=== PATIENT | female | born 1945 | race Caucasian/White ===

== ENCOUNTER 2020-06-10 15:30 | Inpatient (IN) | payer MEDICARE, OTHER ==
[~2020-06-10] VITALS: Ht 162.6 cm; Wt 6.3 kg
--- NOTE | 2020-06-10 15:50 | NUR ---
OXYGEN PLACED AT 5L VIA NC FOR PULSE OX OF 77% ROOM AIR.
--- NOTE | 2020-06-10 15:55 | NUR ---
NC CHANGED TO OXYMASK BY DR JONES. PULSE OX ON NC 94%.
[2020-06-10] MEDS ORDERED: LACTATED RINGERS 1,000 ML IV ONE ×3 (16:08→19:56)
[2020-06-10] MEDS ORDERED: ENOXAPARIN 40 MG/0.4 ML (LOVENOX) SYR ONE (16:08)
--- NOTE | 2020-06-10 16:11 | NUR ---
BOTH DR JONES AND I TRIED FOR A ABG ET WAS UNSUCCESSFUL.
--- NOTE | 2020-06-10 16:20 | NUR ---
JUICE GIVEN TO THE PT.
[2020-06-10 16:25] LABS: BASOPHILS % (AUTO) 0 % (0-10); EOSINOPHILS % (AUTO) 0 % (0-10); HEMATOCRIT 40 % (35-52); HEMOGLOBIN 13.6 g/dL (11.5-16.0); LYMPHOCYTES # (AUTO) 1.4 10^3/uL (1.0-4.0); LYMPHOCYTES % (AUTO) 16 % (12-44); MEAN CORPUSCULAR HEMOGLOBIN 31 pg (25-34); MEAN CORPUSCULAR HGB CONC 34 g/dL (32-36); MEAN CORPUSCULAR VOLUME 91 fL (80-99); MEAN PLATELET VOLUME 8.9 fL (9.0-12.2); MONOCYTES # (AUTO) 0.7 10^3/uL (0.0-1.0); MONOCYTES % (AUTO) 8 % (0-12); NEUTROPHILS # (AUTO) 6.6 10^3/uL (1.8-7.8); NEUTROPHILS % (AUTO) 75 % (42-75); PLATELET COUNT 431 10^3/uL (130-400); WHITE BLOOD COUNT 8.8 10^3/uL (4.3-11.0)
--- NOTE | 2020-06-10 16:26 | ED Respiratory ---
General Chief Complaint: Respiratory Problems Stated Complaint: COVID POSITIVE - SOA Nursing Triage Note: ARRIVED VIA AMB IN [facility]UTIONS TO ROOM 10. DX WITH COVID YESTERDAY AND WAS TOLD TO GO BACK TO [facility] FOR PULSE OX CHECK. PULSE OX THERE WAS 88%RA AND WAS SENT HERE. Source: patient Exam Limitations: no limitations History of Present Illness Date Seen by Provider: Jun 10, 2020 Time Seen by Provider: 15:57 Initial Comments Patient presents ER by private conveyance from [facility] with chief complaint she was diagnosed 2 days ago with COVID-19 at [facility] and to follow up today for oxygen sat rechecked. Her sats were 86% per nursing staff on room air so they sent her straight to the ER. The patient does not have any lung issues or vertical history. She does not follow with a doctor routinely. She does not require oxygen at baseline. She is not having a productive cough but she is having nausea and vomiting and took a tablet of ondansetron just before coming out and her nausea is gone. She says she's had very little to eat or drink in the last couple days. She has body aches and chills but no fever recently. Her symptoms started approximate 7 days ago on Friday. Allergies and Home Medications Allergies Coded Allergies: No Known Drug Allergies (Unverified , 06/10/20) Patient Home Medication List Home Medication List Reviewed: Yes Review of Systems Review of Systems Constitutional: No chills, No diaphoresis EENTM: No ear discharge, No hearing loss, No blurred vision Respiratory: No cough; short of breath; No wheezing Cardiovascular: No chest pain, No Hx of Intervention, No palpitations Gastrointestinal: No abdominal pain; nausea, vomiting Genitourinary: No discharge, No dysuria Musculoskeletal: No back pain, No joint pain Skin: No pruritus, No rash Psychiatric/Neurological: Denies Anxiety, Denies Depressed Immunological/Allergic: grass allergy All Other Systems Reviewed Negative Unless Noted: Yes Past Bdodvzs-Tmgcmm-Gconfe Hx Patient Social History Alcohol Use: Denies Use Recreational Drug Use: No Smoking Status: Former Smoker Recent Foreign Travel: No Contact w/Someone Who Travel: No Recent Infectious Disease Expo: No Recent Hopitalizations: No Past Medical History Surgeries: No Respiratory: No Cardiac: No Neurological: No Genitourinary: No Gastrointestinal: No Musculoskeletal: No Endocrine: No HEENT: No Cancer: No Psychosocial: No Integumentary: No Physical Exam Vital Signs - First Documented 06/10/20 06/10/20 15:50 15:55 Temp 35.4 Pulse 80 Resp 24 B/P (MAP) 124/71 (88) Pulse Ox 77 O2 Delivery Room Air O2 Flow Rate 8.00 Capillary Refill : Less Than 3 Seconds Height: '" Weight: lbs. oz. kg; 22.00 BMI Method: General Appearance: WD/WN, moderate distress Eyes: Bilateral Eye Normal Inspection, Bilateral Eye PERRL, Bilateral Eye EOMI HEENT: PERRL/EOMI, TMs normal; No pharynx normal (oropharynx is dry) Neck: non-tender, full range of motion, supple, normal inspection Respiratory: lungs clear, normal breath sounds, respiratory distress (oxygen saturation 78% on room air.) Cardiovascular: normal peripheral pulses, regular rate, rhythm Gastrointestinal: normal bowel sounds, non tender, soft Extremities: normal inspection, normal capillary refill Neurologic/Psychiatric: alert, normal mood/affect, oriented x 3 Skin: cool, mottled Focused Exam Lactate Level 06/10/20 16:00: Lactic Acid Level 1.68 Lactic Acid Level Laboratory Tests Test 06/10/20 16:00 Lactic Acid Level 1.68 MMOL/L (0.50-2.00) Progress/Results/Core Measures Suspected Sepsis Recent Fever Within 48 Hours: Yes Infection Criteria Present: Documented Infection New/Unexplained Altered Menta: No Sepsis Screen: Possible Severe Sepsis Risk SIRS Temperature: Pulse: 80 Respiratory Rate: 24 Laboratory Tests 06/10/20 16:00: White Blood Count 8.8 Blood Pressure 124 /71 Mean: 88 06/10/20 16:00: Lactic Acid Level 1.68 Laboratory Tests 06/10/20 16:00: Creatinine 0.90, Platelet Count 431H, Total Bilirubin 0.5 Results/Orders Lab Results Laboratory Tests Test 06/10/20 16:00 06/10/20 16:32 Range/Units White Blood Count 8.8 4.3-11.0 10^3/uL Red Blood Count 4.38 3.80-5.11 10^6/uL Hemoglobin 13.6 11.5-16.0 g/dL Hematocrit 40 35-52 % Mean Corpuscular Volume 91 80-99 fL Mean Corpuscular Hemoglobin 31 25-34 pg Mean Corpuscular Hemoglobin Concent 34 32-36 g/dL Red Cell Distribution Width 12.3 10.0-14.5 % Platelet Count 431 H 130-400 10^3/uL Mean Platelet Volume 8.9 L 9.0-12.2 fL Immature Granulocyte % (Auto) 0 % Neutrophils (%) (Auto) 75 42-75 % Lymphocytes (%) (Auto) 16 12-44 % Monocytes (%) (Auto) 8 0-12 % Eosinophils (%) (Auto) 0 0-10 % Basophils (%) (Auto) 0 0-10 % Neutrophils # (Auto) 6.6 1.8-7.8 10^3/uL Lymphocytes # (Auto) 1.4 1.0-4.0 10^3/uL Monocytes # (Auto) 0.7 0.0-1.0 10^3/uL Eosinophils # (Auto) 0.0 0.0-0.3 10^3/uL Basophils # (Auto) 0.0 0.0-0.1 10^3/uL Immature Granulocyte # (Auto) 0.0 0.0-0.1 10^3/uL Sodium Level 133 L 135-145 MMOL/L Potassium Level 3.7 3.6-5.0 MMOL/L Chloride Level 96 L 98-107 MMOL/L Carbon Dioxide Level 24 21-32 MMOL/L Anion Gap 13 5-14 MMOL/L Blood Urea Nitrogen 21 H 7-18 MG/DL Creatinine 0.90 0.60-1.30 MG/DL Estimat Glomerular Filtration Rate > 60 BUN/Creatinine Ratio 23 Glucose Level 114 H 70-105 MG/DL Lactic Acid Level 1.68 0.50-2.00 MMOL/L Calcium Level 8.8 8.5-10.1 MG/DL Corrected Calcium 9.0 8.5-10.1 MG/DL Total Bilirubin 0.5 0.1-1.0 MG/DL Aspartate Amino Transf (AST/SGOT) 35 H 5-34 U/L Alanine Aminotransferase (ALT/SGPT) 20 0-55 U/L Alkaline Phosphatase 100 40-136 U/L C-Reactive Protein High Sensitivity 5.69 H 0.00-0.50 MG/DL Total Protein 7.2 6.4-8.2 GM/DL Albumin 3.7 3.2-4.5 GM/DL Blood Gas Puncture Site L RAD Blood Gas Patient Temperature 35.4 Arterial Blood pH 7.45 H 7.37-7.43 Arterial Blood Partial Pressure CO2 36 35-45 MMHG Arterial Blood Partial Pressure O2 131 H 79-93 MMHG Arterial Blood HCO3 25 23-27 MMOL/L Arterial Blood Total CO2 25.9 21.0-31.0 MMOL/L Arterial Blood Oxygen Saturation 99 94-100 % Arterial Blood Base Excess 0.9 -2.5-2.5 MMOL/L Dinh Test YES-POS Blood Gas Ventilator Setting NO Blood Gas Inspired Oxygen 8L My Orders Orders - ALMA JONES Lactated Ringers (Lr 1000 Ml Iv Solution (06/10/20 16:08) Enoxaparin Injection (Lovenox Injection) (06/10/20 16:08) Dexamethasone Injection (Decadron Inje (06/10/20 16:09) Cbc With Automated Diff (06/10/20 16:12) Comprehensive Metabolic Panel (06/10/20 16:12) Blood Culture (06/10/20 16:12) Sputum Culture (06/10/20 16:12) Urinalysis (06/10/20 16:12) Urine Culture (06/10/20 16:12) Protime With Inr (06/10/20 16:12) Partial Thromboplastin Time (06/10/20 16:12) Chest 1 View, Ap/Pa Only (06/10/20 16:12) Ed Iv/Invasive Line Start (06/10/20 16:12) Ed Iv/Invasive Line Start (06/10/20 16:12) Vital Signs Adult Sepsis Patie Q15M (06/10/20 16:12) O2 (06/10/20 16:12) Remove Rings In Anticipation O (06/10/20 16:12) Lactic Acid Analyzer (06/10/20 16:12) Lactated Ringers (Lr 1000 Ml Iv Solution (06/10/20 16:12) Monitor-Rhythm Ecg Trace Only (06/10/20 16:12) Hs C Reactive Protein (06/10/20 16:12) Fibrin Degradation Products (06/10/20 16:12) Covid-19 External Lab Results (06/10/20 16:12) Procalcitonin (Pct) (06/10/20 16:12) Enoxaparin Injection (Lovenox Injection) (06/10/20 16:30) Dexamethasone Injection (Decadron Injec (06/10/20 16:30) Dexamethasone Injection (Decadron Inje (06/10/20 16:30) Arterial Blood Gas (06/10/20 16:32) Medications Given in ED Current Medications Medications Dose Ordered Sig/Carmita Route Start Time Stop Time Status Last Admin Dose Admin Dexamethasone Sodium Phosphate 6 mg ONCE ONCE IV 06/10/20 16:30 06/10/20 16:31 DC 06/10/20 16:23 6 MG Enoxaparin Sodium 40 mg ONCE ONCE SC 06/10/20 16:30 06/10/20 16:31 DC 06/10/20 16:22 40 MG Lactated Ringer's 1,000 ml @ 0 mls/hr Q0M ONCE IV 06/10/20 16:12 06/10/20 16:19 DC 06/10/20 16:20 1,000 MLS/HR Vital Signs/I&O 06/10/20 06/10/20 15:50 15:55 Temp 35.4 Pulse 80 Resp 24 B/P (MAP) 124/71 (88) Pulse Ox 77 O2 Delivery Room Air OxyMask O2 Flow Rate 8.00 Capillary Refill : Less Than 3 Seconds Blood Pressure Mean: 88 Progress Note : Time: 16:24 Progress Note Patient presents mottled, cyanotic, cool with oxygen sats in the upper 70s on room air. Nasal cannula 6 L/m only brought her up to about 89%. We put her on oxygen mask at 8 L/m and this brought her up to 94-97%. She is not tachycardic or febrile but she is cool with a temperature of 95. Plan to warm her up in her some IV fluids at the Limited rate 1 L and look for secondary opportunistic bacterial infection. If we cannot discover this and will not start antibiotics. However we'll give her Decadron and 40 mg Lovenox subcutaneous. Diagnostic Imaging Diagonstic Imaging: Xray Plain Films/CT/US/NM/MRI: chest Comments Bilateral patchy parenchymal opacities consistent with viral pneumonia. Reviewed: Reviewed by Me Departure Communication (Admissions) Time/Spoke to Admitting Phy: 16:25 Discussed the case with Dr. Ordaz and he feels she will be fine on the floor with 8 L oxygen, steroids and Lovenox. Impression Primary Impression: COVID-19 Additional Impression: Acute respiratory failure with hypoxemia Disposition: ADMITTED INPATIENT Condition: Stable Admissions Decision to Admit Reason: Admit from ER (General) Decision to Admit/Date: Jun 10, 2020 Time/Decision to Admit Time: 16:07 ALMA JONES Jun 10, 2020 16:26
[2020-06-10] MEDS ORDERED: ENOXAPARIN 40 MG/0.4 ML (LOVENOX) SYR SC ONE (16:30)
[2020-06-10 16:35] LABS: ALBUMIN 3.7 GM/DL (3.2-4.5); CHLORIDE 96 MMOL/L (98-107); POTASSIUM 3.7 MMOL/L (3.6-5.0); SODIUM 133 MMOL/L (135-145)
[2020-06-10 16:36] LABS: CALCIUM 8.8 MG/DL (8.5-10.1)
[2020-06-10 16:37] LABS: GLUCOSE 114 MG/DL (70-105)
[2020-06-10 16:38] LABS: TOTAL PROTEIN 7.2 GM/DL (6.4-8.2)
[2020-06-10 16:39] LABS: BILIRUBIN,TOTAL 0.5 MG/DL (0.1-1.0); CARBON DIOXIDE 24 MMOL/L (21-32)
[2020-06-10 16:41] LABS: ALKALINE PHOSPHATASE 100 U/L (40-136); GFR ESTIMATED > 60
[2020-06-10 16:41] LABS: ABG BASE EXCESS 0.9 MMOL/L (-2.5-2.5); ABG OXYGEN SATURATION 99 % (94-100); ABG PCO2 36 MMHG (35-45); ABG PH 7.45 (7.37-7.43); ABG PO2 131 MMHG (79-93); ABG TCO2 25.9 MMOL/L (21.0-31.0)
[2020-06-10 16:42] LABS: BUN/CREATININE RATIO 23
[2020-06-10 16:42] LABS: ALLENS TEST YES-POS; INSPIRED O2 8L; PATIENT TEMP 35.4; VENTILATOR NO
[2020-06-10 16:44] LABS: ALANINE AMINOTRANSFERASE 20 U/L (0-55)
--- NOTE | 2020-06-10 17:05 | NUR ---
ATTEMPT TO CALL REPORT ET WENT STRAIT TO VOICE MAIL.
--- NOTE | 2020-06-10 17:10 | NUR ---
ATTEMPT TO CALL REPORT ET NURSE WILL CALL BACK.
--- NOTE | 2020-06-10 17:21 | Diagnostic Imaging Report ---
INDICATION: Sepsis. EXAMINATION: Portable chest at 4:51 p.m. FINDINGS: There is some peripheral infiltrates in the right mid and lower lung and left mid and lower lung. Heart size and pulmonary vascularity are normal. There is no effusion. IMPRESSION: Patchy infiltrates in both lungs consistent with pneumonia. Dictated by: Dictated on workstation # [id number]
[2020-06-10 17:43] VITALS: BP 117/75
[2020-06-10 19:15] LABS: FIBRIN DEGRADATION PRODUCTS 1.48 UG/ML (0.00-0.49); INR 0.9 (0.8-1.4); PROTHROMBIN TIME PATIENT 12.8 SEC (12.2-14.7)
[2020-06-10 20:15] VITALS: BP 108/63
[2020-06-10] MEDS: LACTATED RINGERS 1,000 ML IV SCH (20:43)
[2020-06-10] MEDS ORDERED: ACETAMINOPHEN 325 MG TABLET PO PRN (20:45)
[2020-06-10] MEDS ORDERED: ANTACID SUSP 30 ML UDC (MYLANTA) PO PRN (20:45)
[2020-06-10] MEDS ORDERED: ONDANSETRON 4 MG/2 ML (SDV) Z0FRAN IV PRN (20:45)
[2020-06-10] MEDS ORDERED: IBUPROFEN 800 MG (MOTRIN) TAB PO PRN (20:45)
[2020-06-11] VITALS (8 sets, daily range): BP systolic 101–130; BP diastolic 52–75
[2020-06-11] MEDS ORDERED: RT-ALBUTEROL INHALER HFA (VENTOLIN HFA) 18 GM IH PRN ×2 (04:00)
[2020-06-11] MEDS: RT-ALBUTEROL INHALER HFA (VENTOLIN HFA) 18 GM IH SCH ×6 (04:12→21:57)
[2020-06-11 05:44] LABS: BASOPHILS % (AUTO) 0 % (0-10); EOSINOPHILS % (AUTO) 0 % (0-10); HEMATOCRIT 37 % (35-52); HEMOGLOBIN 12.5 g/dL (11.5-16.0); LYMPHOCYTES # (AUTO) 0.8 10^3/uL (1.0-4.0); LYMPHOCYTES % (AUTO) 29 % (12-44); MEAN CORPUSCULAR HEMOGLOBIN 31 pg (25-34); MEAN CORPUSCULAR HGB CONC 34 g/dL (32-36); MEAN CORPUSCULAR VOLUME 92 fL (80-99); MEAN PLATELET VOLUME 8.7 fL (9.0-12.2); MONOCYTES # (AUTO) 0.3 10^3/uL (0.0-1.0); MONOCYTES % (AUTO) 9 % (0-12); NEUTROPHILS # (AUTO) 1.7 10^3/uL (1.8-7.8); NEUTROPHILS % (AUTO) 61 % (42-75); PLATELET COUNT 438 10^3/uL (130-400); WHITE BLOOD COUNT 2.7 10^3/uL (4.3-11.0)
[2020-06-11] MEDS ORDERED: ENOXAPARIN 40 MG/0.4 ML (LOVENOX) SYR SC SCH (06:00)
[2020-06-11 06:03] LABS: ALANINE AMINOTRANSFERASE 17 U/L (0-55); ALBUMIN 3.2 GM/DL (3.2-4.5); ALKALINE PHOSPHATASE 93 U/L (40-136); BILIRUBIN,TOTAL 0.4 MG/DL (0.1-1.0); BUN/CREATININE RATIO 22; CALCIUM 8.3 MG/DL (8.5-10.1); CARBON DIOXIDE 22 MMOL/L (21-32); CHLORIDE 102 MMOL/L (98-107); CREATININE SERUM 0.77 MG/DL (0.60-1.30); GFR ESTIMATED > 60; GLUCOSE 149 MG/DL (70-105); POTASSIUM 3.5 MMOL/L (3.6-5.0); SODIUM 139 MMOL/L (135-145); TOTAL PROTEIN 6.4 GM/DL (6.4-8.2)
[2020-06-11] MEDS: LACTATED RINGERS 1,000 ML IV SCH (08:19)
[2020-06-11] MEDS ORDERED: REMDESIVIR INJ 200 MG in NS (IVPB) 210 ML IV ONE (11:45)
--- NOTE | 2020-06-11 11:52 | History & Physical-Hospitalist ---
History of Present Illness HPI/Chief Complaint Reggie Olivas is a 74 year old female with no known past medical history who presented with shortness of breath. She reports no known fevers. She reports cough. She reports distortion of her taste and smell. She has not been eating very much. She reports muscle aches. She reports nausea. She reports diarrhea. She was a 1-2 pack per day smoker up until very recently. She has at least a 50+ pack year history. Source: patient Exam Limitations: no limitations Date Seen 06/11/20 Time Seen by a Provider: 11:15 Attending Physician Beth Bonilla MD PCP Referring Physician Date of Admission Jun 10, 2020 at 16:40 Home Medications & Allergies Home Medications Reviewed patient Home Medication Reconciliation performed by pharmacy medication reconciliations it telecom technician and/or nursing. Patients Allergies have been reviewed. Allergies Allergies Coded Allergies No Known Drug Allergies (Bbqvwefcsy44/17/20) Past Pefkpnu-Rndvct-Gxwcgj Hx Past Med/Social Hx: Reviewed Nursing Past Med/Soc Hx Patient Social History Alcohol Use: Denies Use Recreational Drug Use: No Smoking Status: Former Smoker Recent Foreign Travel: No Contact w/other who traveled: No Recent Hopitalizations: No Recent Infectious Disease Expo: No Review of Systems Constitutional: malaise EENTM: no symptoms reported Respiratory: cough, short of breath Cardiovascular: no symptoms reported Gastrointestinal: diarrhea, nausea Genitourinary: no symptoms reported Musculoskeletal: back pain Skin: no symptoms reported Psychiatric/Neurological: No Symptoms Reported Physical Exam Physical Exam Vital Signs Vital Signs - First Documented 06/10/20 06/10/20 06/11/20 15:50 15:55 01:44 Temp 35.4 Pulse 80 Resp 24 B/P (MAP) 124/71 (88) Pulse Ox 77 O2 Delivery Room Air O2 Flow Rate 8.00 FiO2 21 Capillary Refill : Less Than 3 Seconds Height, Weight, BMI Height: '" Weight: lbs. oz. kg; 23.82 BMI Method: General Appearance: No Apparent Distress, WD/WN HEENT: PERRL/EOMI, Pharynx Normal Neck: Normal Inspection, Supple Respiratory: Lungs Clear, Normal Breath Sounds, No Respiratory Distress Cardiovascular: Regular Rate, Rhythm, No Edema, No Murmur Gastrointestinal: Normal Bowel Sounds, Non Tender, Soft Extremity: Normal Inspection, Non Tender, No Pedal Edema Neurologic/Psychiatric: Alert, Oriented x3, No Motor/Sensory Deficits, Normal Mood/Affect Skin: Normal Color, Warm/Dry Results Results/Procedures Labs Laboratory Tests 06/10/20 16:00 06/11/20 05:15 Patient resulted labs reviewed. Imaging: Reviewed Imaging Report Assessment/Plan Admission Diagnosis Acute respiratory failure due to COVID-19 Admission Status: Inpatient Order (span 2 midnights) Reason for Inpatient Admission: COVID-19 requiring oxygen Assessment and Plan Acute respiratory failure due to COVID-19 Pneumonia due to COVID-19 Leukopenia Former smoker COVID positive Chest xray with bilateral infiltrates Procalcitonin negative Antibiotics not indicated Started on Decadron Begin Remdesivir, discussed risks/benefits/EUA use and patient agrees Convalescent plasma ordered, discussed risks/benefits/EUA use and patient agrees Nicotine gum as needed DVT/GI Prophylaxis: Lovenox/PPI Diagnosis/Problems Diagnosis/Problems (1) Acute respiratory failure due to COVID-19 Status: Acute (2) Pneumonia due to COVID-19 virus Status: Acute (3) Leukopenia Status: Acute (4) Former smoker Status: Chronic Clinical Quality Measures DVT/VTE Risk/Contraindication: Risk Factor Score Per Nursin RFS Level Per Nursing on Admit: 2=Moderate BETH BONILLA MD Jun 11, 2020 11:52
--- NOTE | 2020-06-11 12:38 | NUR ---
IVF STOPPED PER DR. BONILLA'S ORDERS
[2020-06-12] VITALS (11 sets, daily range): BP systolic 122–141; BP diastolic 54–70
[2020-06-12] MEDS: RT-ALBUTEROL INHALER HFA (VENTOLIN HFA) 18 GM IH SCH ×6 (02:05→21:41)
[2020-06-12] MEDS ORDERED: NS IV 500 ML 500 ML ONE (02:06)
[2020-06-12 04:39] LABS: ALBUMIN 3.3 GM/DL (3.2-4.5); CHLORIDE 104 MMOL/L (98-107); POTASSIUM 3.4 MMOL/L (3.6-5.0); SODIUM 139 MMOL/L (135-145)
[2020-06-12 04:40] LABS: CALCIUM 8.4 MG/DL (8.5-10.1)
[2020-06-12 04:41] LABS: GLUCOSE 124 MG/DL (70-105); TOTAL PROTEIN 6.1 GM/DL (6.4-8.2)
[2020-06-12 04:42] LABS: CARBON DIOXIDE 23 MMOL/L (21-32)
[2020-06-12 04:43] LABS: BILIRUBIN,TOTAL 0.4 MG/DL (0.1-1.0)
[2020-06-12 04:45] LABS: ALKALINE PHOSPHATASE 81 U/L (40-136); GFR ESTIMATED > 60
[2020-06-12 04:46] LABS: BUN/CREATININE RATIO 23
[2020-06-12 04:48] LABS: ALANINE AMINOTRANSFERASE 19 U/L (0-55)
[2020-06-12] MEDS: ENOXAPARIN 40 MG/0.4 ML (LOVENOX) SYR SC SCH (05:51)
[2020-06-12] MEDS: dexAMETHasone 6 MG TAB (DECADRON) PO SCH (05:51)
[2020-06-12] MEDS ORDERED: KCL 20 MEQ TAB (K-DUR) PO NR (08:00)
[2020-06-12] MEDS: PANTOPRAZOLE 40 MG (PROTONIX) TAB PO SCH (08:48)
--- NOTE | 2020-06-12 09:20 | Progress Note - Hospitalist ---
Subjective HPI/CC On Admission Date Seen by Provider: Jun 12, 2020 Time Seen by Provider: 09:19 Reggie Olivas is a 74 year old female with no known past medical history who presented with shortness of breath. She reports no known fevers. She reports cough. She reports distortion of her taste and smell. She has not been eating very much. She reports muscle aches. She reports nausea. She reports diarrhea. She was a 1-2 pack per day smoker up until very recently. She has at least a 50+ pack year history. Subjective/Events-last exam Pt reports feeling better and breathing easier. Still on 7lpm. Focused Exam Lactate Level 06/10/20 16:00: Lactic Acid Level 1.68 06/10/20 19:45: Lactic Acid Level 0.82 Objective Exam Vital Signs Vital Signs Date Time Temp Pulse Resp B/P (MAP) Pulse Ox O2 Delivery O2 Flow Rate FiO2 06/12/20 08:00 36.4 72 20 141/66 (91) 92 High Flow N/C 7.00 06/11/20 01:44 21 Capillary Refill : Less Than 3 Seconds General Appearance: No Apparent Distress, Chronically ill Respiratory: Lungs Clear, No Accessory Muscle Use, Other (on 7lpm HFNC) Cardiovascular: Regular Rate, Rhythm, No Murmur Gastrointestinal: Normal Bowel Sounds, Soft Neurologic/Psychiatric: Alert, Oriented x3 Results/Procedures Lab Laboratory Tests 06/12/20 04:06 Patient resulted labs reviewed. Imaging: Reviewed Imaging Report Assessment/Plan Assessment and Plan Assess & Plan/Chief Complaint Acute respiratory failure due to COVID-19 Pneumonia due to COVID-19 Leukopenia Former smoker Chest xray with bilateral infiltrates No abx as procal negative Continue Decadron Continue Remdesivir s/p Convalescent plasma Nicotine gum as needed DVt ppx: Lovenox Diagnosis/Problems Diagnosis/Problems (1) Acute respiratory failure with hypoxemia Status: Acute (2) COVID-19 Status: Acute (3) Leukopenia Status: Acute (4) Pneumonia due to COVID-19 virus Status: Acute (5) Acute respiratory failure due to COVID-19 Status: Acute Clinical Quality Measures DVT/VTE Risk/Contraindication: Risk Factor Score Per Nursin RFS Level Per Nursing on Admit: 2=Moderate ROBB MCKEON MD Jun 12, 2020 09:20
--- NOTE | 2020-06-12 10:51 | NUR ---
SPOKE WITH THE PT (I CALLED HER ROOM PHONE) TO COMPLETE THE MED REC PT DENIES TAKING ANY PRESCRIPTION OR OTC MEDICATION
[2020-06-12] MEDS: REMDESIVIR INJ 100 MG in NS (IVPB) 230 ML IV SCH (15:03)
--- NOTE | 2020-06-12 16:09 | NUR ---
1534: PATIENT CAMRON ROSE CALLED AT THIS TIME FOR UPDATES/QUESTIONS ON PATIENT STATUS. THIS RN BOWL ATTENDANT WAS CURRENTLY IN ANOTHER PATIENT ROOM AND UNABLE TO TALK. CAMRON INFORMED I WOULD CALL BACK WHEN I WAS FINISHED. 1609: ATTEMPTED TO CALL CAMRON ROSE AT THIS TIME WITH NO ANSWER. UNABLE TO LEAVE VOICEMAIL. 1613: CAMRON RETURNED CALL AT THIS TIME AND ALL QUESTIONS ANSWERED.
[2020-06-13] MEDS: RT-ALBUTEROL INHALER HFA (VENTOLIN HFA) 18 GM IH SCH ×6 (02:21→21:35)
[2020-06-13 03:13] VITALS: BP 130/79
[2020-06-13 05:20] LABS: HEMOGLOBIN 11.8 g/dL (11.5-16.0); MEAN PLATELET VOLUME 8.8 fL (9.0-12.2); WHITE BLOOD COUNT 8.1 10^3/uL (4.3-11.0)
[2020-06-13 05:34] LABS: ALBUMIN 3.4 GM/DL (3.2-4.5); CHLORIDE 103 MMOL/L (98-107); POTASSIUM 3.9 MMOL/L (3.6-5.0); SODIUM 138 MMOL/L (135-145)
[2020-06-13 05:35] LABS: CALCIUM 9.1 MG/DL (8.5-10.1)
[2020-06-13 05:36] LABS: GLUCOSE 117 MG/DL (70-105); TOTAL PROTEIN 6.3 GM/DL (6.4-8.2)
[2020-06-13 05:37] LABS: CARBON DIOXIDE 23 MMOL/L (21-32)
[2020-06-13 05:38] LABS: BILIRUBIN,TOTAL 0.5 MG/DL (0.1-1.0)
[2020-06-13 05:39] LABS: ALKALINE PHOSPHATASE 88 U/L (40-136)
[2020-06-13 05:40] LABS: CREATININE SERUM 0.71 MG/DL (0.60-1.30); GFR ESTIMATED > 60
[2020-06-13 05:41] LABS: BUN/CREATININE RATIO 24
[2020-06-13 05:43] LABS: ALANINE AMINOTRANSFERASE 23 U/L (0-55)
[2020-06-13] MEDS: ENOXAPARIN 40 MG/0.4 ML (LOVENOX) SYR SC SCH (05:44)
[2020-06-13] MEDS: dexAMETHasone 6 MG TAB (DECADRON) PO SCH (06:28)
[2020-06-13 08:21] VITALS: BP 129/69
[2020-06-13] MEDS: PANTOPRAZOLE 40 MG (PROTONIX) TAB PO SCH (08:30)
--- NOTE | 2020-06-13 09:13 | Progress Note - Hospitalist ---
Subjective HPI/CC On Admission Date Seen by Provider: Jun 13, 2020 Time Seen by Provider: 09:08 Reggie Olivas is a 74 year old female with no known past medical history who presented with shortness of breath. She reports no known fevers. She reports cough. She reports distortion of her taste and smell. She has not been eating very much. She reports muscle aches. She reports nausea. She reports diarrhea. She was a 1-2 pack per day smoker up until very recently. She has at least a 50+ pack year history. Subjective/Events-last exam Pt reports feeling much better today. Down to 4lpm. Has not been out of bed much because she's worried her oxygen saturation will drop. Compliant with IS every hour though. Focused Exam Lactate Level 06/10/20 16:00: Lactic Acid Level 1.68 06/10/20 19:45: Lactic Acid Level 0.82 Objective Exam Vital Signs Vital Signs Date Time Temp Pulse Resp B/P (MAP) Pulse Ox O2 Delivery O2 Flow Rate FiO2 06/13/20 08:21 36.6 72 18 129/69 (89) 91 High Flow N/C 4.00 06/11/20 01:44 21 Capillary Refill : Less Than 3 Seconds General Appearance: No Apparent Distress, WD/WN Respiratory: Lungs Clear, No Respiratory Distress Cardiovascular: Regular Rate, Rhythm, No Murmur Gastrointestinal: Normal Bowel Sounds, Non Tender, Soft Neurologic/Psychiatric: Alert, Oriented x3, Normal Mood/Affect Results/Procedures Lab Laboratory Tests 06/13/20 04:56 Patient resulted labs reviewed. Imaging: Reviewed Imaging Report Assessment/Plan Assessment and Plan Assess & Plan/Chief Complaint Acute respiratory failure due to COVID-19 Pneumonia due to COVID-19 Leukopenia Former smoker Chest xray with bilateral infiltrates No abx as procal negative Continue Decadron Continue Remdesivir s/p Convalescent plasma x1 Nicotine gum as needed Doing well, encouraged OOB activity and to use the bathroom and not BSC PT/OT DVt ppx: Lovenox Diagnosis/Problems Diagnosis/Problems (1) Acute respiratory failure with hypoxemia Status: Acute (2) COVID-19 Status: Acute (3) Leukopenia Status: Acute (4) Pneumonia due to COVID-19 virus Status: Acute (5) Acute respiratory failure due to COVID-19 Status: Acute Clinical Quality Measures DVT/VTE Risk/Contraindication: Risk Factor Score Per Nursin RFS Level Per Nursing on Admit: 2=Moderate ROBB MCKEON MD Jun 13, 2020 09:13
[2020-06-13 11:00] VITALS: BP 126/71
--- NOTE | 2020-06-13 11:27 | Physical Therapy Evaluation ---
PT Evaluation-General Medical Diagnosis Admission Date Jun 10, 2020 at 16:40 Medical Diagnosis: Covid (+)/acute respiratory failure Onset Date: Jun 10, 2020 Therapy Diagnosis Therapy Diagnosis: debility Precautions Precautions/Isolations: Contact Isolation, Droplet Isolation Referral Physician: Benjamin Reason for Referral: Evaluation/Treatment Medical History Pertinent Medical History: Smoking Additional Medical History does not follow a physician Current History ER secondary to decreased SAO2 on RA Reviewed History: Yes Social History Home: Single Level Prior Prior Level of Function SCALE: Activities may be completed with or without assistive devices. 0-Jumsfotfwr-yabndsf completes the activity by him/herself with no assistance from a helper. 5-Set-up or Clean-up Assistance-helper sets up or cleans up; patient completes activity. [place] assists only prior to or following the activity. 4-Supervision or Touching Assistance-helper provides verbal cues and/or touching/steadying and/or contact guard assistance as patient completes activity. Assistance may be provided throughout the activity or intermittently. 3-Partial/Moderate Assistance-helper does LESS THAN HALF the effort. [place] lifts, holds or supports trunk or limbs, but provides less than half the effort. 2-Substantial/Maximal Assistance-helper does MORE THAN HALF the effort. [place] lifts or holds trunk or limbs and provides more than half the effort. 7-Yoeazlpjt-umkzsr does ALL the effort. Patient does none of the effort to complete the activity. Or, the assistance of 2 or more helpers is required for the patient to complete the activity. If activity was not attempted, code reason: 7-Patient Refused. 9-Not Applicable-not attempted and the patient did not perform the activity before the current illness, exacerbation or injury. 10-Not Attempted due to Environmental Limitations-(lack of equipment, weather restraints, etc.). 88-Not Attempted due to Medical Conditions or Safety Concerns. Bed Mobility: 6 Transfers (B,C,W/C): 6 Gait: 6 Stairs: 6 Indoor Mobility (Ambulation): Independent Stairs: Independent Prior Devices Use: None PT Evaluation-Current Subjective Patient reports she is up independent in her room. Agrees to PT. Objective Patient Orientation: Normal For Age Attachments: Oxygen ROM/Strength ROM Lower Extremities bilateral LE WFL Strength Lower Extremities 4/5 grossly bilateral LE Integumentary/Posture Integumentary refer to nursing notes Bowel Incontinence: No Bladder Incontinence: No Posture WFL Neuromuscular (Tone, Coordination, Reflexes) grossly intact with all Sensory Vision: Functional Hearing: Functional Transfers Roll Left to Right (QC): 6 Sit to Lying (QC): 6 Lying to Sitting/Side of Bed(Q: 6 Sit to Stand (QC): 6 Chair/Ihz-yx-Nrvbs Xfer(QC): 6 Gait Does the Patient Walk?: Yes Mode of Locomotion: Walk Anticipated Mode of Locomotion: Walk Walk 10 feet (QC): 6 Walk 50 ft with 2 Turns(QC): 6 Walk 150 ft (QC): 6 Gait Assistive Device: None Comments/Gait Description in room due to precautions with patient negotiating O2 tubing independently Balance Sitting Static: Normal Sitting Dynamic: Normal Standing Static: Normal Standing Dynamic: Normal Assessment/Needs 74 y.o. female, is currently at [facility] with all gross motor skills and does not require skilled therapy intervention. Rehab Potential: Good PT Plan Treatment/Plan Treatment Plan: Discontinue PT, goals met Treatment Duration: Jun 13, 2020 Frequency: 1 time per week Estimated Hrs Per Day: .25 hour per day Patient and/or Family Agrees t: Yes Discharge Recommendations Therapy Discharge Recommendati: Home & Family Time/GCodes Time In: 950 Time Out: 1003 Total Billed Treatment Time: 13 Total Billed Treatment 1 visit EVLowC 13 min GISELLE ALEJANDRO PT Jun 13, 2020 11:27
[2020-06-13] MEDS: CARBAM PEROX/GLYC/PROP 15 ML DROPS (DEBROX) EACH EAR PRN (14:20)
[2020-06-13] MEDS: REMDESIVIR INJ 100 MG in NS (IVPB) 230 ML IV SCH (14:20)
[2020-06-13 16:19] VITALS: BP 130/65
[2020-06-13 20:14] VITALS: BP 139/76
[2020-06-13 23:50] VITALS: BP 134/62
[2020-06-14] MEDS: RT-ALBUTEROL INHALER HFA (VENTOLIN HFA) 18 GM IH SCH ×6 (02:24→20:45)
[2020-06-14 04:27] VITALS: BP 129/73
[2020-06-14 05:49] LABS: HEMOGLOBIN 12.1 g/dL (11.5-16.0); MEAN PLATELET VOLUME 8.9 fL (9.0-12.2); WHITE BLOOD COUNT 8.1 10^3/uL (4.3-11.0)
[2020-06-14 06:12] LABS: ALBUMIN 3.3 GM/DL (3.2-4.5)
[2020-06-14 06:13] LABS: CHLORIDE 103 MMOL/L (98-107); POTASSIUM 4.2 MMOL/L (3.6-5.0); SODIUM 137 MMOL/L (135-145)
[2020-06-14 06:14] LABS: CALCIUM 9.1 MG/DL (8.5-10.1)
[2020-06-14] MEDS: dexAMETHasone 6 MG TAB (DECADRON) PO SCH (06:14)
[2020-06-14] MEDS: ENOXAPARIN 40 MG/0.4 ML (LOVENOX) SYR SC SCH (06:14)
[2020-06-14 06:15] LABS: GLUCOSE 104 MG/DL (70-105); TOTAL PROTEIN 6.3 GM/DL (6.4-8.2)
[2020-06-14 06:16] LABS: CARBON DIOXIDE 23 MMOL/L (21-32)
[2020-06-14 06:17] LABS: BILIRUBIN,TOTAL 0.6 MG/DL (0.1-1.0)
[2020-06-14 06:18] LABS: ALKALINE PHOSPHATASE 94 U/L (40-136)
[2020-06-14 06:19] LABS: CREATININE SERUM 0.71 MG/DL (0.60-1.30); GFR ESTIMATED > 60
[2020-06-14 06:20] LABS: BUN/CREATININE RATIO 24
[2020-06-14 06:22] LABS: ALANINE AMINOTRANSFERASE 24 U/L (0-55)
[2020-06-14] MEDS: PANTOPRAZOLE 40 MG (PROTONIX) TAB PO SCH (08:11)
[2020-06-14 08:55] VITALS: BP 119/69
[2020-06-14 11:59] VITALS: BP 120/70
--- NOTE | 2020-06-14 12:46 | Progress Note - Hospitalist ---
Subjective HPI/CC On Admission Date Seen by Provider: Jun 14, 2020 Time Seen by Provider: 12:43 Reggie Olivas is a 74 year old female with no known past medical history who presented with shortness of breath. She reports no known fevers. She reports cough. She reports distortion of her taste and smell. She has not been eating very much. She reports muscle aches. She reports nausea. She reports diarrhea. She was a 1-2 pack per day smoker up until very recently. She has at least a 50+ pack year history. Subjective/Events-last exam Pt reports doing well today. Up in bed eating lunch. No complaints. Going to shower later today. Objective Exam Vital Signs Vital Signs Date Time Temp Pulse Resp B/P (MAP) Pulse Ox O2 Delivery O2 Flow Rate FiO2 06/14/20 11:59 61 22 120/70 (87) 90 High Flow N/C 5.00 06/14/20 08:55 36.4 06/11/20 01:44 21 Capillary Refill : Less Than 3 Seconds General Appearance: No Apparent Distress, WD/WN Respiratory: Lungs Clear, No Accessory Muscle Use, Other (on 6lpm) Cardiovascular: Regular Rate, Rhythm, No Murmur Gastrointestinal: Normal Bowel Sounds, Non Tender, Soft Neurologic/Psychiatric: Alert, Oriented x3 Results/Procedures Lab Laboratory Tests 06/14/20 05:14 Patient resulted labs reviewed. Imaging: Reviewed Imaging Report Assessment/Plan Assessment and Plan Assess & Plan/Chief Complaint Acute respiratory failure due to COVID-19 Pneumonia due to COVID-19 Leukopenia Former smoker Continue Decadron Continue Remdesivir s/p Convalescent plasma x1 Nicotine gum as needed Did well with PT yesterday DVt ppx: Lovenox Diagnosis/Problems Diagnosis/Problems (1) Acute respiratory failure with hypoxemia Status: Acute (2) COVID-19 Status: Acute (3) Leukopenia Status: Acute Qualifiers: Leukopenia type: other Qualified Codes: D72.818 - Other decreased white blood cell count (4) Pneumonia due to COVID-19 virus Status: Acute (5) Acute respiratory failure due to COVID-19 Status: Acute Clinical Quality Measures DVT/VTE Risk/Contraindication: Risk Factor Score Per Nursin RFS Level Per Nursing on Admit: 2=Moderate ROBB MCKEON MD Jun 14, 2020 12:46
[2020-06-14 16:19] VITALS: BP 123/60
[2020-06-14] MEDS: REMDESIVIR INJ 100 MG in NS (IVPB) 230 ML IV SCH (16:35)
[2020-06-14 19:36] VITALS: BP 132/63
[2020-06-15] VITALS (8 sets, daily range): BP systolic 98–129; BP diastolic 53–67
[2020-06-15] MEDS: RT-ALBUTEROL INHALER HFA (VENTOLIN HFA) 18 GM IH SCH ×6 (04:17→23:04)
[2020-06-15] MEDS: dexAMETHasone 6 MG TAB (DECADRON) PO SCH (05:41)
[2020-06-15] MEDS: ENOXAPARIN 40 MG/0.4 ML (LOVENOX) SYR SC SCH (05:42)
[2020-06-15 06:25] LABS: HEMOGLOBIN 11.7 g/dL (11.5-16.0); MEAN PLATELET VOLUME 8.8 fL (9.0-12.2); WHITE BLOOD COUNT 8.1 10^3/uL (4.3-11.0)
[2020-06-15 06:40] LABS: ALANINE AMINOTRANSFERASE 25 U/L (0-55); ALBUMIN 3.1 GM/DL (3.2-4.5); ALKALINE PHOSPHATASE 83 U/L (40-136); BILIRUBIN,TOTAL 0.5 MG/DL (0.1-1.0); BUN/CREATININE RATIO 24; CALCIUM 8.9 MG/DL (8.5-10.1); CARBON DIOXIDE 25 MMOL/L (21-32); CHLORIDE 102 MMOL/L (98-107); GFR ESTIMATED > 60; GLUCOSE 104 MG/DL (70-105); POTASSIUM 4.3 MMOL/L (3.6-5.0); SODIUM 137 MMOL/L (135-145); TOTAL PROTEIN 5.9 GM/DL (6.4-8.2)
[2020-06-15] MEDS: PANTOPRAZOLE 40 MG (PROTONIX) TAB PO SCH (08:25)
--- NOTE | 2020-06-15 12:26 | Progress Note - Hospitalist ---
Subjective HPI/CC On Admission Date Seen by Provider: Jun 15, 2020 Time Seen by Provider: 12:24 Reggie Olivas is a 74 year old female with no known past medical history who presented with shortness of breath. She reports no known fevers. She reports cough. She reports distortion of her taste and smell. She has not been eating very much. She reports muscle aches. She reports nausea. She reports diarrhea. She was a 1-2 pack per day smoker up until very recently. She has at least a 50+ pack year history. Subjective/Events-last exam Pt reports doing better today. No complaints. Oxygen requirement coming down. Objective Exam Vital Signs Vital Signs Date Time Temp Pulse Resp B/P (MAP) Pulse Ox O2 Delivery O2 Flow Rate FiO2 06/15/20 10:30 92 High Flow N/C 5.00 06/15/20 07:19 36.2 76 20 114/67 (83) 06/11/20 01:44 21 Capillary Refill : NONELess Than 3 Seconds General Appearance: No Apparent Distress, Chronically ill Respiratory: Lungs Clear, No Accessory Muscle Use, Other (on 5lpm) Cardiovascular: Regular Rate, Rhythm, No Murmur Neurologic/Psychiatric: Alert, Oriented x3 Results/Procedures Lab Laboratory Tests 06/15/20 05:50 Patient resulted labs reviewed. Imaging: Reviewed Imaging Report Assessment/Plan Assessment and Plan Assess & Plan/Chief Complaint Acute respiratory failure due to COVID-19 Pneumonia due to COVID-19 Leukopenia Former smoker Continue Decadron Continue Remdesivir- last dose today s/p Convalescent plasma x1 Continue to wean oxygen as able, will likely need home oxygen upon discharge but hopefully closer to 2-3 lpm on discharge DVt ppx: Lovenox Diagnosis/Problems Diagnosis/Problems (1) Acute respiratory failure with hypoxemia Status: Acute (2) COVID-19 Status: Acute (3) Leukopenia Status: Acute Qualifiers: Leukopenia type: other Qualified Codes: D72.818 - Other decreased white blood cell count (4) Pneumonia due to COVID-19 virus Status: Acute (5) Acute respiratory failure due to COVID-19 Status: Acute Clinical Quality Measures DVT/VTE Risk/Contraindication: Risk Factor Score Per Nursin RFS Level Per Nursing on Admit: 2=Moderate ROBB MCKEON MD Jun 15, 2020 12:26
[2020-06-15] MEDS: REMDESIVIR INJ 100 MG in NS (IVPB) 230 ML IV SCH (14:55)
[2020-06-16] VITALS (7 sets, daily range): BP systolic 100–117; BP diastolic 57–69
[2020-06-16] MEDS: RT-ALBUTEROL INHALER HFA (VENTOLIN HFA) 18 GM IH SCH ×5 (02:11→19:16)
[2020-06-16] MEDS: ENOXAPARIN 40 MG/0.4 ML (LOVENOX) SYR SC SCH (05:04)
[2020-06-16] MEDS: dexAMETHasone 6 MG TAB (DECADRON) PO SCH (05:04)
[2020-06-16 06:43] LABS: HEMOGLOBIN 11.2 g/dL (11.5-16.0); MEAN PLATELET VOLUME 8.8 fL (9.0-12.2); WHITE BLOOD COUNT 9.6 10^3/uL (4.3-11.0)
[2020-06-16 06:49] LABS: ALBUMIN 3.1 GM/DL (3.2-4.5)
[2020-06-16 06:51] LABS: CALCIUM 8.9 MG/DL (8.5-10.1)
[2020-06-16 06:52] LABS: GLUCOSE 110 MG/DL (70-105); TOTAL PROTEIN 5.8 GM/DL (6.4-8.2)
[2020-06-16 06:53] LABS: CARBON DIOXIDE 22 MMOL/L (21-32)
[2020-06-16 06:54] LABS: BILIRUBIN,TOTAL 0.4 MG/DL (0.1-1.0)
[2020-06-16 06:55] LABS: ALKALINE PHOSPHATASE 79 U/L (40-136)
[2020-06-16 06:56] LABS: GFR ESTIMATED > 60
[2020-06-16 06:57] LABS: BUN/CREATININE RATIO 33
[2020-06-16 06:58] LABS: ALANINE AMINOTRANSFERASE 21 U/L (0-55)
[2020-06-16 07:09] LABS: CHLORIDE 103 MMOL/L (98-107); POTASSIUM 4.3 MMOL/L (3.6-5.0); SODIUM 135 MMOL/L (135-145)
[2020-06-16] MEDS: PANTOPRAZOLE 40 MG (PROTONIX) TAB PO SCH (08:07)
--- NOTE | 2020-06-16 10:23 | Progress Note - Hospitalist ---
Subjective HPI/CC On Admission Date Seen by Provider: Jun 16, 2020 Time Seen by Provider: 10:20 Reggie Olivas is a 74 year old female with no known past medical history who presented with shortness of breath. She reports no known fevers. She reports cough. She reports distortion of her taste and smell. She has not been eating very much. She reports muscle aches. She reports nausea. She reports diarrhea. She was a 1-2 pack per day smoker up until very recently. She has at least a 50+ pack year history. Subjective/Events-last exam Pt reports feeling well. No complaints. Weaning down on oxygen. Down to 4lpm. Objective Exam Vital Signs Vital Signs Date Time Temp Pulse Resp B/P (MAP) Pulse Ox O2 Delivery O2 Flow Rate FiO2 06/16/20 10:08 91 Nasal Cannula 4.00 06/16/20 08:00 36.5 63 20 100/61 (74) 06/11/20 01:44 21 Capillary Refill : NONELess Than 3 Seconds General Appearance: No Apparent Distress, WD/WN Respiratory: No Accessory Muscle Use, Decreased Breath Sounds, Other (on 4lpm) Cardiovascular: Regular Rate, Rhythm, No Murmur Gastrointestinal: Normal Bowel Sounds, Non Tender, Soft Neurologic/Psychiatric: Alert, Oriented x3 Results/Procedures Lab Laboratory Tests 06/16/20 06:07 Patient resulted labs reviewed. Imaging: Reviewed Imaging Report Assessment/Plan Assessment and Plan Assess & Plan/Chief Complaint Acute respiratory failure due to COVID-19 Pneumonia due to COVID-19 Leukopenia Former smoker Continue Decadron s/p Remdesivir and Convalescent plasma x1 Continue to wean oxygen as able, will likely need home oxygen upon discharge but hopefully closer to 2-3 lpm on discharge Start Advair for likely underlying COPD DVt ppx: Lovenox Diagnosis/Problems Diagnosis/Problems (1) Acute respiratory failure with hypoxemia Status: Acute (2) COVID-19 Status: Acute (3) Leukopenia Status: Acute Qualifiers: Leukopenia type: other Qualified Codes: D72.818 - Other decreased white blood cell count (4) Pneumonia due to COVID-19 virus Status: Acute (5) Acute respiratory failure due to COVID-19 Status: Acute Clinical Quality Measures DVT/VTE Risk/Contraindication: Risk Factor Score Per Nursin RFS Level Per Nursing on Admit: 2=Moderate ROBB MCKEON MD Jun 16, 2020 10:23
--- NOTE | 2020-06-16 13:36 | NUR ---
"RD ASSESSMENT PMHx: no known PMH PT INTERACTION: Note pt is currently in COVID isolation, per chart review. Note all information gathered for nutrition assessment for LOS is per chart review and per Kelley PCT. Kelley states pt appetite appears good. Note avg PO intake 92% x4d, per chart review. Kelley states no issues with nausea, vomiting, constipation, or diarrhea that she is aware of. Note last BM was 06/14, and pt not currently on bowel regimen per chart review. Note unable to determine recent wt hx, per chart review. ABNORMAL NUTRITION-RELATED LAB VALUES LOW: Pro 5.8; alb 3.1 HIGH: BNU 26; glu 110 Est. kcal needs: 1575 kcal | 25 kcal/kg Est. Pro needs: 63 g Pro | 1.0 g Pro/kg PES STATEMENT: Given current PO intake, no nutrition diagnosis at this time (NO-1.1) INTERVENTION: Continue with current diet order of Regular diet. Will continue to follow and reassess as pt needs, intake, and status change. Ton Hamm, MS RD LD"
[2020-06-16] MEDS: ADVAIR HFA 115/21 MCG INHALER 8 GM IH SCH ×2 (14:13→19:15)
[2020-06-16] MEDS: CARBAM PEROX/GLYC/PROP 15 ML DROPS (DEBROX) EACH EAR PRN (20:10)
[2020-06-17] MEDS: RT-ALBUTEROL INHALER HFA (VENTOLIN HFA) 18 GM IH SCH ×4 (03:18→20:05)
[2020-06-17] MEDS: ENOXAPARIN 40 MG/0.4 ML (LOVENOX) SYR SC SCH (05:44)
[2020-06-17] MEDS: dexAMETHasone 6 MG TAB (DECADRON) PO SCH (05:44)
[2020-06-17] MEDS: PANTOPRAZOLE 40 MG (PROTONIX) TAB PO SCH (07:59)
[2020-06-17 08:00] VITALS: BP 103/55
--- NOTE | 2020-06-17 08:48 | Progress Note - Hospitalist ---
Subjective HPI/CC On Admission Date Seen by Provider: Jun 17, 2020 Time Seen by Provider: 08:47 Reggie Olivas is a 74 year old female with no known past medical history who presented with shortness of breath. She reports no known fevers. She reports cough. She reports distortion of her taste and smell. She has not been eating very much. She reports muscle aches. She reports nausea. She reports diarrhea. She was a 1-2 pack per day smoker up until very recently. She has at least a 50+ pack year history. Subjective/Events-last exam Pt reports feeling well. No complaints. Breathing improved. Down to 3lpm. Discussed discharge plan and she would like to wait until tomorrow to continue to work on oxygen weaning. Objective Exam Vital Signs Vital Signs Date Time Temp Pulse Resp B/P (MAP) Pulse Ox O2 Delivery O2 Flow Rate FiO2 06/17/20 08:00 93 Nasal Cannula 3.00 06/16/20 23:16 36.5 62 18 104/63 (77) 06/16/20 15:05 32 Capillary Refill : NONELess Than 3 Seconds General Appearance: No Apparent Distress, WD/WN Respiratory: Lungs Clear, No Accessory Muscle Use, Other (on 3lpm) Cardiovascular: Regular Rate, Rhythm, No Murmur Gastrointestinal: Normal Bowel Sounds, Non Tender, Soft Neurologic/Psychiatric: Alert, Oriented x3 Results/Procedures Lab Patient resulted labs reviewed. Imaging: Reviewed Imaging Report Assessment/Plan Assessment and Plan Assess & Plan/Chief Complaint Acute respiratory failure due to COVID-19 Pneumonia due to COVID-19 Leukopenia Former smoker Continue Decadron s/p Remdesivir and Convalescent plasma x1 Continue to wean oxygen as able, home O2 study ordered for tomorrow Continue Advair for likely underlying COPD Likely DC home tomorrow DVt ppx: Lovenox Diagnosis/Problems Diagnosis/Problems (1) Acute respiratory failure with hypoxemia Status: Acute (2) COVID-19 Status: Acute (3) Leukopenia Status: Acute Qualifiers: Leukopenia type: other Qualified Codes: D72.818 - Other decreased white blood cell count (4) Pneumonia due to COVID-19 virus Status: Acute (5) Acute respiratory failure due to COVID-19 Status: Acute Clinical Quality Measures DVT/VTE Risk/Contraindication: Risk Factor Score Per Nursin RFS Level Per Nursing on Admit: 2=Moderate LINDA,ROBB M MD Jun 17, 2020 08:48
[2020-06-17 09:05] LABS: MEAN PLATELET VOLUME 8.8 fL (9.0-12.2)
[2020-06-17] MEDS: ADVAIR HFA 115/21 MCG INHALER 8 GM IH SCH ×2 (09:11→20:05)
[2020-06-17 09:22] LABS: ALANINE AMINOTRANSFERASE 21 U/L (0-55); ALBUMIN 3.5 GM/DL (3.2-4.5); ALKALINE PHOSPHATASE 83 U/L (40-136); BILIRUBIN,TOTAL 0.6 MG/DL (0.1-1.0); BUN/CREATININE RATIO 27; CARBON DIOXIDE 23 MMOL/L (21-32); CHLORIDE 102 MMOL/L (98-107); CREATININE SERUM 0.85 MG/DL (0.60-1.30); GFR ESTIMATED > 60; GLUCOSE 137 MG/DL (70-105); POTASSIUM 4.2 MMOL/L (3.6-5.0); SODIUM 136 MMOL/L (135-145); TOTAL PROTEIN 6.6 GM/DL (6.4-8.2)
[2020-06-17 15:50] VITALS: BP 107/67
[2020-06-17] MEDS: CARBAM PEROX/GLYC/PROP 15 ML DROPS (DEBROX) EACH EAR PRN (20:18)
[2020-06-18] VITALS: BP 111/67
[2020-06-18] MEDS: RT-ALBUTEROL INHALER HFA (VENTOLIN HFA) 18 GM IH SCH ×2 (03:33→09:51)
[2020-06-18] MEDS: ENOXAPARIN 40 MG/0.4 ML (LOVENOX) SYR SC SCH (06:17)
[2020-06-18] MEDS: dexAMETHasone 6 MG TAB (DECADRON) PO SCH (06:17)
[2020-06-18 07:26] LABS: HEMOGLOBIN 11.5 g/dL (11.5-16.0); MEAN PLATELET VOLUME 8.5 fL (9.0-12.2); WHITE BLOOD COUNT 9.5 10^3/uL (4.3-11.0)
[2020-06-18 07:55] LABS: ALANINE AMINOTRANSFERASE 22 U/L (0-55); ALBUMIN 3.3 GM/DL (3.2-4.5); ALKALINE PHOSPHATASE 78 U/L (40-136); BILIRUBIN,TOTAL 0.5 MG/DL (0.1-1.0); BUN/CREATININE RATIO 30; CALCIUM 9.1 MG/DL (8.5-10.1); CARBON DIOXIDE 24 MMOL/L (21-32); CHLORIDE 102 MMOL/L (98-107); GFR ESTIMATED > 60; GLUCOSE 110 MG/DL (70-105); POTASSIUM 4.4 MMOL/L (3.6-5.0); SODIUM 136 MMOL/L (135-145); TOTAL PROTEIN 6.4 GM/DL (6.4-8.2)
[2020-06-18 08:00] VITALS: BP 117/70
[2020-06-18] MEDS: PANTOPRAZOLE 40 MG (PROTONIX) TAB PO SCH (08:32)
[2020-06-18] MEDS: ADVAIR HFA 115/21 MCG INHALER 8 GM IH SCH (09:51)
--- NOTE | 2020-06-18 09:58 | NUR ---
PT WAS ON 1L NC WITH SATURATION OF 93%. PT WAS PLACED ON ROOM AIR FOR 10 MINUTES. PT DESATURATED TO 87%. PT WAS THEN PLACED ON 2L NC AND SATURATION CAME UP TO 93%. PT WILL NEED 2L OF O2 AT ALL TIMES Addendum: 06/18/20 at 0959 by LILLIE FINLEY RT Amended: Links added.
[2020-06-18] MEDS ORDERED: ALBU18HF2 IH (10:19)
[2020-06-18] MEDS ORDERED: FLUT12AE4 IH (10:19)
--- NOTE | 2020-06-18 10:20 | Discharge Inst-Simple/Standard ---
Discharge Inst-Standard Discharge Medications New, Converted or Re-Newed RX: Transmitted to Pharmacy Patient Instructions/Follow Up Plan of Care/Instructions/FU: Please continue to take your medications as written. Please follow up with your primary care doctor to follow up this hospital stay. Activity as Tolerated: Yes Discharge Diet: No Restrictions Return to The Hospital For: Cough, shortness of breath, fever, chest pain, if you feel you are getting worse. Planned Outpatient Orders/Ref. Pneu Vac Indicated: Yes ROBB MCKEON MD Jun 18, 2020 10:20
--- NOTE | 2020-06-18 10:22 | Discharge Summary ---
Diagnosis/Chief Complaint Date of Admission Jun 10, 2020 at 16:40 Date of Discharge Discharge Date: Jun 18, 2020 Admission Diagnosis Acute respiratory failure due to COVID-19 Primary Care Discharge Diagnosis (1) Acute respiratory failure with hypoxemia Status: Acute (2) COVID-19 Status: Acute (3) Leukopenia Status: Acute (4) Pneumonia due to COVID-19 virus Status: Acute (5) Acute respiratory failure due to COVID-19 Status: Acute Discharge Summary Discharge Physical Exam Allergies: Coded Allergies: No Known Drug Allergies (Unverified , 06/10/20) Vitals & I&Os Vital Signs Date Time Temp Pulse Resp B/P (MAP) Pulse Ox O2 Delivery O2 Flow Rate FiO2 06/18/20 09:56 94 1.00 06/18/20 09:53 Nasal Cannula 06/18/20 08:00 36.1 58 16 117/70 (86) 06/16/20 15:05 32 Hospital Course Labs (last 24 hrs) Laboratory Tests 06/18/20 07:18: White Blood Count 9.5, Red Blood Count 3.72L, Hemoglobin 11.5, Hematocrit 34L, M shruthi Corpuscular Volume 93, Mean Corpuscular Hemoglobin 31, Mean Corpuscular Hemoglobin Concent 33, Red Cell Distribution Width 12.7, Platelet Count 606H, Mean Platelet Volume 8.5L, Sodium Level 136, Potassium Level 4.4, Chloride Level 102, Carbon Dioxide Level 24, Anion Gap 10, Blood Urea Nitrogen 24H, Creatinine 0.80, Estimat Glomerular Filtration Rate > 60, BUN/Creatinine Ratio 30, Glucose Level 110H, Calcium Level 9.1, Corrected Calcium 9.7, Total Bilirubin 0.5, Aspartate Amino Transf (AST/SGOT) 21, Alanine Aminotransferase (ALT/SGPT) 22, Alkaline Phosphatase 78, Total Protein 6.4, Albumin 3.3 Microbiology 06/10/20 Blood Culture - Final, Complete No growth Patient resulted labs reviewed. Pending Labs Laboratory Tests 06/18/20 07:18: White Blood Count 9.5, Red Blood Count 3.72, Hemoglobin 11.5, Hematocrit 34, Mean Corpuscular Volume 93, Mean Corpuscular Hemoglobin 31, Mean Corpuscular Hemoglobin Concent 33, Red Cell Distribution Width 12.7, Platelet Count 606, Pauline n Platelet Volume 8.5, Sodium Level 136, Potassium Level 4.4, Chloride Level 102, Carbon Dioxide Level 24, Anion Gap 10, Blood Urea Nitrogen 24, Creatinine 0.80, Estimat Glomerular Filtration Rate > 60, BUN/Creatinine Ratio 30, Glucose Level 110, Calcium Level 9.1, Corrected Calcium 9.7, Total Bilirubin 0.5, Aspartate Amino Transf (AST/SGOT) 21, Alanine Aminotransferase (ALT/SGPT) 22, Alkaline Phosphatase 78, Total Protein 6.4, Albumin 3.3 Imaging: Reviewed Imaging Report Discharge Home Medications: Active Scripts Active Advair Hfa 115-21 Mcg Inhaler (Fluticasone/Salmeterol) 12 Gm Hfa.aer.ad 0 Puff IH RTBID Ventolin Hfa (Albuterol Sulfate) 18 Gm Hfa.aer.ad 0 Gm IH Q2HR PRN Instructions to patient/family Please see electronic discharge instructions given to patient. Clinical Quality Measures DVT/VTE Risk/Contraindication: Risk Factor Score Per Nursin RFS Level Per Nursing on Admit: 2=Moderate Problem Qualifiers (1) Leukopenia: Leukopenia type: other Qualified Codes: D72.818 - Other decreased white blood cell count ROBB MCKEON MD Jun 18, 2020 10:22
== END 2020-06-18 15:40 | disposition home or self-care (01) | DRG 177 ==
LOC: EDUNIT# 15:30 → ER 15:31 → 4TH 16:40
PROVIDERS: ADMIT Internal Medicine; ATTEND Internal Medicine
PROC: XW033E5 Introduction of Remdesivir Anti-infective into Peripheral Vein, Percutaneous Approach, New Technology Group 5 (ICD-10-PCS; principal; 2020-06-11)
PROC: XW13325 Transfusion of Convalescent Plasma (Nonautologous) into Peripheral Vein, Percutaneous Approach, New Technology Group 5 (ICD-10-PCS; 2020-06-12)
DX: U07.1 COVID-19 (principal); J96.01 Acute respiratory failure with hypoxia; J12.89 Other viral pneumonia; D72.819 Decreased white blood cell count, unspecified; Z87.891 Personal history of nicotine dependence
CPT/HCPCS: 36415; 71045; 80053; 82805; 82962; 83605; 84145; 85025; 85027; 85379; 85610; 85730; 86141; 86900; 86901; 87040; 93041; 94640; 94664; 94760; 94761; 96361; 96372; 96374

== ENCOUNTER → 2020-08-01 | Outpatient (CLI) | payer MEDICARE ==
[~2020-08-01] MED LIST: ALBU18HF2 IH; FLUT12AE4 IH
--- NOTE | 2020-08-01 15:39 | Diagnostic Imaging Report ---
INDICATION: Postmenopausal. COMPARISON: None. FINDINGS: The bone mineral density of the hips and spine was measured. The total T-score for the spine is -2.3. This does indicate osteopenia. It should be noted that the T-score for L2 is -2.6 which does fall within the range of osteoporosis. The total T-score for the left hip is -2.2 and for the right hip -2.0. The T-score for the right femoral neck is -1.7. All these values indicate osteopenia. However, the T-score for the left femoral neck is -2.5 and this does indicate osteoporosis. IMPRESSION: 1. The bone mineral density of the spine, the hips and the right femoral neck does indicate osteopenia. There is osteoporosis of the left femoral neck. The T-score for L2 also indicates osteoporosis. AP Spine L1-L4: [BMD (g/cm2): 0.919] [T-Score: -2.3] [Z-Score: -0.5] [BMD Previous: NA] [BMD % Change: NA] LT Hip Neck: [BMD (g/cm2): 0.696] [T-Score: -2.5] [Z-Score: -0.6] LT Hip Total: [BMD (g/cm2):0.726] [T-Score:-2.2] [Z-Score: -0.5] [BMD Previous: NA] [BMD % Change: NA] RT Hip Neck: [BMD (g/cm2):0.807] [T-Score:-1.7] [Z-Score:0.2] RT Hip Total: [BMD (g/cm2):0.753] [T-score:-2.0] [Z-Score:-0.3] [BMD Previous:NA] [BMD % Change:NA] *Indicates significant change from prior examination based on 95% confidence level. World Health Organization criteria for BMD interpretation classify patients as Normal (T-score at or above -1.0), Osteopenic (T-score between -1.0 and -2.5) or Osteoporotic (T-score at or below -2.5). LIMITATIONS AND MODIFICATION: None. FRACTURE RISK (FRAX SCORE): The ten year probability of (%): Major Osteoporotic Fracture: [15.2] Hip Fracture: [4.4] IMPRESSION: 1. 2. 3. See below National Osteoporosis Foundation guidelines on when to potentially initiate pharmacologic therapy. Based on the National Osteoporosis Foundation Guidelines, pharmacologic treatment should be initiated in any of the following, unless clinical conditions suggest otherwise: * Any patient with prior fragility fracture of the hip or vertebrae. A spine fracture indicates 5X risk for subsequent spine fracture and 2X risk for subsequent hip fracture. * Osteoporosis (T-score <-2.5). * Postmenopausal women and men age 50 and older with low bone mass/osteopenia (T-score between -1.0 and -2.5) by DXA and 10-year major osteoporotic fracture greater than 20% or a 10-year probability of hip fracture greater than 3%. These fracture risks are supplied above in the FRAX score, if applicable. * Clinician judgement and/or patient preferences may indicate treatment for people with 10-year fracture probabilities above or below these levels. Dictated by: Dictated on workstation # [id number]
== END ==
LOC: RAD 14:23
PROVIDERS: ATTEND Nurse Practitioner Family
DX: M81.0 Age-related osteoporosis without current pathological fracture (principal); Z78.0 Asymptomatic menopausal state
CPT/HCPCS: 77080

== ENCOUNTER → 2021-03-08 | Outpatient (CLI) | payer MEDICARE ==
--- NOTE | 2021-03-08 13:39 | Diagnostic Imaging Report ---
PROCEDURE: CT chest without contrast. TECHNIQUE: Multiple contiguous axial images were obtained through the chest without the use of intravenous contrast. Auto Exposure Controls were utilized during the CT exam to meet ALARA standards for radiation dose reduction. INDICATION: 75-year-old female, shortness of breath, chest pain, history of COVID. CORRELATION: Chest radiograph 06/10/2020. FINDINGS: There is rather prominent number but predominantly small bilateral axillary lymph nodes. Additionally, there are prominent predominantly subcentimeter mediastinal lymph nodes. Largest lymph node is in the right precarinal region, short axis dimension 11 mm. There also appear to be prominent subcarinal lymph nodes. Hilar lymphadenopathy would be difficult to exclude. Heart size is within normal limits with scattered mild coronary artery calcification. Prominent appearance about the ascending aorta, 3.8 cm. There is presence of a [id number] hiatal hernia. There is prominent, circumferential wall thickening of the lower esophagus from essentially the level of the alvaro through the gastroesophageal junction. There do appear to be some retained gastric contents in the lower esophagus. A few mildly prominent subcentimeter paraesophageal lymph nodes. There are moderately advanced emphysematous changes of the lung parenchyma. Prominent interstitial thickening. However, no fadia cystic or subpleural honeycombing is demonstrated. No consolidating infiltrate. A few calcified granulomas are present. Noncalcified 7 mm nodule in the posterolateral right lower lobe. No significant pleural effusion. The visualized portions of the upper abdomen are unremarkable. Slightly accentuated thoracic kyphosis and degenerative changes in the thoracic spine. IMPRESSION: 1. Advanced emphysematous changes about the lung parenchyma. No consolidating infiltrate. Right lower lobe pulmonary nodule, currently indeterminate. Follow-up CT chest in six months is recommended. Possibility of early neoplasm is not excluded. 2. Prominent esophageal hernia. Rather significant areas of lower esophageal wall thickening is noted. While this could be owing to a component of underlying esophagitis, infiltrative process including neoplasm should be excluded. Correlation with endoscopy and/or upper gastrointestinal imaging. 3. Rather prominent number axillary, mediastinal, and potentially hilar lymph nodes, limited in evaluation on noncontrast imaging. Some are borderline for consideration of pathologically enlarged lymph nodes. Dictated by: Dictated on workstation # [id number]
== END ==
LOC: RAD 03-01 16:15
PROVIDERS: ATTEND Nurse Practitioner Family
DX: J43.9 Emphysema, unspecified (principal); K44.9 Diaphragmatic hernia without obstruction or gangrene; R91.1 Solitary pulmonary nodule; Z86.16 Personal history of COVID-19
CPT/HCPCS: 71250

== ENCOUNTER → 2021-03-15 | Outpatient (CLI) | payer MEDICARE ==
--- NOTE | 2021-03-16 10:32 | Diagnostic Imaging Report ---
Indication: Baseline 2-D and 3-D digital screening mammograms with CAD.. Scattered fibroglandular densities in the breast. No breast mass, spiculated lesion, architectural distortion, suspicious calcifications or evidence for neoplasm. The skin, nipples and axilla appeared within normal limits. IMPRESSION: Negative baseline screening mammograms BI-RADS Category 1 ACR BI-RADS Category 1: Negative. Result letter will be mailed to the patient. Note: At least 10% of breast cancer is not imaged by mammography. Dictated by: Dictated on workstation # [id number]
== END ==
LOC: RAD 15:00
PROVIDERS: ATTEND Nurse Practitioner Family
DX: Z12.31 Encounter for screening mammogram for malignant neoplasm of breast (principal); R59.0 Localized enlarged lymph nodes
CPT/HCPCS: 77063; 77067

== ENCOUNTER 2021-04-03 05:29 | Outpatient (RCR) | payer MEDICARE ==
[~2021-04-03] VITALS: Ht 162.6 cm; Wt 68.0 kg
[~2021-04-03 05:29] MED LIST changes: +BUDE10.22 IH; +OMEP40CA6 PO
== END 2021-04-03 08:42 | disposition home or self-care (01) ==
LOC: PREOP 05:29
PROVIDERS: ATTEND Surgery
DX: Z01.818 Encounter for other preprocedural examination (principal); Z20.822 Contact with and (suspected) exposure to COVID-19
CPT/HCPCS: 87635

== ENCOUNTER 2021-04-05 08:13 | Day surgery (SDC) | payer MEDICARE ==
[~2021-04-05] VITALS: Ht 162.6 cm; Wt 68.0 kg
[2021-04-05] VITALS (8 sets, daily range): BP systolic 111–129; BP diastolic 51–71
[2021-04-05] MEDS ORDERED: LACTATED RINGERS 1,000 ML IV ONE (08:21)
[2021-04-05] MEDS ORDERED: LACTATED RINGERS 1,000 ML IV STA (08:23)
[2021-04-05] MEDS ORDERED: PROPOFOL INJECTION 50 ML IV ONE (08:29)
[2021-04-05] MEDS ORDERED: MIDAZOLAM 2 MG/2 ML (VERSED) VIAL ONE (08:29)
[2021-04-05] MEDS ORDERED: HURRICAINE EXT TUBE (BENZOCAINE) XX PRN (08:30)
[2021-04-05] MEDS ORDERED: TIOT4MIS3 IH (09:10)
--- NOTE | 2021-04-05 09:26 | Progress Note-Pre Operative ---
Pre-Operative Progress Note H&P Reviewed The H&P was reviewed, patient examined and no changes noted. Time Seen by Provider: 09:22 Date H&P Reviewed: Apr 05, 2021 Time H&P Reviewed: :22 Pre-Operative Diagnosis: Gastritis, Dysphagia MAHENDRA LECHUGA DO Apr 05, 2021 09:26
--- NOTE | 2021-04-05 10:12 | Progress Note-Post Operative ---
Post-Operative Progess Note Surgeon (s)/Business Continuity Global Director (s) Surgeon MAHENDRA LECHUGA DO Business Continuity Global Director: none Pre-Operative Diagnosis Gastritis, Dysphagia Post-Operative Diagnosis Gastritis Large Hiatal Hernia Green's Esophagus Procedure & Operative Findings Date of Procedure 04/05/21 Procedure Performed/Findings EGD with bx PROCEDURE NOTE: After informed consent was obtained, the patient was brought to the endoscopy suite, placed in bed in left lateral decubitus position. She was administered IV sedation by the METAL SORTER who then monitored vitals the entire time, heart rate, blood pressure and pulse ox and the scope was inserted down the mouth through the esophagus into the stomach. On the way down, noted some mild esophagitis and a large hiatal hernia; took a picture. Next pushed into the stomach and pushed past the antrum into the duodenum; looked good. Pulled back and did a biopsy of antrum, then retroflexed the scope, saw a large hiatal hernia, took a picture of this and then pulled the scope into the GE junction, took another picture of the hiatal hernia and then did a biopsy of what I thought was the GE junction. However, just above this was an area that looked different and did a biopsy here. Finally, long term up the esophagus I saw the delineation between esophageal mucosa and gastric mucosa and did anothe biopsy here. Pushed the scope back into the stomach, suctioned all the air out of the stomach. At this point pulled the scope up the esophagus and out the mouth. The patient tolerated the procedure, and she recovered in endoscopy suite. Anesthesia Type IV sedation by METAL SORTER Estimated Blood Loss Estimated blood loss (mL): scant Specimens/Packing Specimens Removed antral bx GE jxn bx Upper GE bx Mid-esophagus bx x 2 MAHENDRA LECHUGA DO Apr 05, 2021 10:12
--- NOTE | 2021-04-05 10:14 | Endoscopy Discharge Instruct ---
Endo Procedure/Findings Findings 1.: Gastritis 2.: Hiatal Hernia 3.: Green's Esophagus Discharge Instructions - Activity: You might feel a little sleepy until tomorrow. This is due to the medicine you received to relax you. Until tomorrow, you should: NOT drive a car, operate machinery or power tools. NOT drink any alcoholic beverages. NOT make any important decisions or sign importortant papers. Do not return to work until tomorrow, unless otherwise instructed. Resume previous activities tomorrow. Diet: Start by taking liquids. If you tolerate liquids, advance to solid food. 1.: Other Recommendation (EGD in 3-6 months) Notify Physician - If you experience excessive bleeding, unusual abdominal pain, fever, or chest pain, contact your doctor immediately. MAHENDRA LECHUGA DO Apr 05, 2021 10:14
--- NOTE | 2021-04-05 10:21 | Anesthesia-General Post-Op ---
MAC Patient Condition Mental Status/LOC: Same as Preop Cardiovascular: Satisfactory Nausea/Vomiting: Absent Respiratory: Satisfactory Pain: Controlled Complications: Absent Post Op Complications Complications None Follow Up Care/Instructions Patient Instructions None needed. Anesthesiology Discharge Order Discharge Order Patient is doing well, no complaints, stable vital signs, no apparent adverse anesthesia problems. No complications reported per nursing. KIARA CHILEL CRNA Apr 05, 2021 10:21
== END 2021-04-05 10:58 | disposition home or self-care (01) ==
LOC: ENDO 08:13
PROVIDERS: ATTEND Surgery
DX: K29.50 Unspecified chronic gastritis without bleeding (principal); B96.81 Helicobacter pylori [H. pylori] as the cause of diseases classified elsewhere; K20.90 Esophagitis, unspecified without bleeding; K44.9 Diaphragmatic hernia without obstruction or gangrene; K22.70 Barrett's esophagus without dysplasia; J44.9 Chronic obstructive pulmonary disease, unspecified; K21.9 Gastro-esophageal reflux disease without esophagitis; Z79.899 Other long term (current) drug therapy; Z79.51 Long term (current) use of inhaled steroids
CPT/HCPCS: 88305

== ENCOUNTER 2021-05-10 13:00 | Outpatient (RCR) | payer MEDICARE ==
[~2021-05-10 13:00] MED LIST changes: +TIOT4MIS3 IH
== END 2021-07-25 | disposition home or self-care (01) ==
LOC: LAB 13:00
PROVIDERS: ATTEND Surgery
DX: Z01.89 Encounter for other specified special examinations (principal)
CPT/HCPCS: 87338

== ENCOUNTER → 2021-10-09 | Outpatient (CLI) | payer MEDICARE, MEDICAID ==
--- NOTE | 2021-10-09 17:36 | Diagnostic Imaging Report ---
PROCEDURE: CT chest without contrast. TECHNIQUE: Multiple contiguous axial images were obtained through the chest without the use of intravenous contrast. Auto Exposure Controls were utilized during the CT exam to meet ALARA standards for radiation dose reduction. INDICATION: COPD, pulmonary nodule. COMPARISON: 03/08/2021. FINDINGS: Mediastinal and hilar lymph nodes are again noted to be mildly prominent in number and size. However, this appears relatively stable from the prior examination. In particular, a precarinal conglomerate lymph node measures 1.0 cm, and previously it measured 1.1 cm. A couple of partially calcified lymph nodes are present. No definite new or increasing adenopathy. Moderate-sized hiatal hernia with improved mural thickening of the distal esophagus. Mild scattered vascular calcifications without aneurysmal dilatation of the thoracic aorta. The heart is within normal limits in size. No pericardial effusion. No pleural effusion. Small fat-containing diaphragmatic hernia on the right. The trachea is patent. No pneumothorax. Mild background emphysematous changes. Biapical pleural parenchymal scarring. Tiny micronodules measuring under 3 mm are identified within the left lung base, appearing stable from prior examination. A new sub-solid 1.5 x 1.2 x 0.9 cm irregular right middle lobe pulmonary nodule is identified, subpleural in location. This is new from the prior examination. Stable 0.7 cm right lower lobe pulmonary nodule. Minimal tree-in-bud nodularity within the inferior aspect of the right lower lobe has developed. Stable hypodense prominence of the right adrenal gland with Hounsfield units of up to 5. The minimally visualized upper abdomen is otherwise unremarkable. No acute osseous abnormality. IMPRESSION: New 1.2 cm irregular ground-glass right middle lobe pulmonary nodule. This is indeterminate. This could relate to an infectious etiology, though neoplasm should be considered. If there is clinical concern that this could relate to an underlying infectious abnormality, then a follow-up CT of the chest would be recommended in one month. However, if patient does not have clinical symptoms to suggest an underlying infection, then CT-guided biopsy versus PET/CT should be considered. Additional bilateral subcentimeter pulmonary nodules are present, and stable from the prior examination. Mildly prominent mediastinal and hilar lymph nodes are again identified, not significantly changed from the prior examination. Mild background emphysematous changes. Minimal tree-in-bud nodularity within the inferior right lower lobe suggesting a small airway or small vessel infectious or inflammatory process. Moderate-sized hiatal hernia. Dictated by: Dictated on workstation # [id number]
== END ==
LOC: RAD 14:45
PROVIDERS: ATTEND Nurse Practitioner Family
DX: J43.1 Panlobular emphysema (principal); K44.9 Diaphragmatic hernia without obstruction or gangrene; R91.8 Other nonspecific abnormal finding of lung field
CPT/HCPCS: 71250

== ENCOUNTER → 2022-01-16 | Outpatient (CLI) | payer MEDICARE, MEDICAID ==
[~2022-01-16] MED LIST changes: +RT-ALBUTEROL SULF 2.5 MG/3 ML PRE-MIX VIAL INH ONE
--- NOTE | 2022-01-16 15:11 | Diagnostic Imaging Report ---
PROCEDURE: CT chest without contrast. TECHNIQUE: Multiple contiguous axial images were obtained through the chest without the use of intravenous contrast. Auto Exposure Controls were utilized during the CT exam to meet ALARA standards for radiation dose reduction. INDICATION: Shortness of air, cough. COMPARISON: Chest CT performed 10/09/2021. FINDINGS: The irregular peripheral groundglass nodule in the right middle lobe postero-laterally has since resolved entirely confirming its benignity and presumed to reflect a resolved benign infectious or inflammatory process. No new or suspicious lung mass is found. There are no findings of acute pneumonia. The chronic sub-solid right lower lobe 3 mm nodule is stable from priors. Moderate to large retrocardiac hiatal hernia, chronic. Fat-containing precarinal lymph nodes, unchanged, measuring 9.6 mm in short axis. Subcentimeter left lower paratracheal mediastinal nodes, unchanged. Some shotty superior paratracheal mediastinal nodes, largely fat-containing, unchanged. No new or dominant mass. No suspicious lesion. No pleural or pericardial effusion. Emphysematous changes, chronic. No evidence for edema or pneumonia. No acute chest wall pathology. Coronary artery atherosclerotic vascular calcifications, chronic. IMPRESSION: 1. Resolution of the prior right middle lobe groundglass nodule confirming its prior benignity. Subcentimeter, sub-solid, right lower lobe nodule long-term stable and benign. No new or suspicious finding. 2. Some mildly prominent mediastinal lymph node showed continued stability from multiple priors. 3. Hiatal hernia, chronic. 4. Chronic COPD. Dictated by: Dictated on workstation # [id number]
== END ==
LOC: RAD 12:15
PROVIDERS: ATTEND Internal Medicine Critical Care Medicine
DX: J44.9 Chronic obstructive pulmonary disease, unspecified (principal); J96.21 Acute and chronic respiratory failure with hypoxia; R91.1 Solitary pulmonary nodule; K44.9 Diaphragmatic hernia without obstruction or gangrene
CPT/HCPCS: 71250; 94060; 94726; 94729